=== PATIENT | female | born 1990 | race Caucasian/White ===

== ENCOUNTER 2017-12-14 17:54 | Emergency (ER) | payer BC ==
[2017-12-14] MEDS ORDERED: HYDROCODONE/ACETAMINOPHEN 5-325 MG TABLET PO ONE (18:36)
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
[2017-12-14 19:03] VITALS: BP 117/76
== END 2017-12-14 19:10 | disposition home or self-care (01) ==
LOC: ER 17:54
DX: R03.0 Elevated blood-pressure reading, without diagnosis of hypertension (principal); S19.9XXA Unspecified injury of neck, initial encounter; S60.022A Contusion of left index finger without damage to nail, initial encounter; W22.8XXA Striking against or struck by other objects, initial encounter; Y93.64 Activity, baseball
CPT/HCPCS: 99283